=== PATIENT | male | born 1970 | race Two or more races ===

== ENCOUNTER 2017-08-11 15:37 | Emergency (ER) | payer SELFPAY | END 2017-08-11 16:06 | disposition left against medical advice (07) | LOC: ER 15:37 | DX: R07.9 Chest pain, unspecified (principal); Z53.21 Procedure and treatment not carried out due to patient leaving prior to being seen by health care provider ==

== ENCOUNTER 2017-08-12 14:46 | Emergency (ER) | payer SELFPAY ==
[~2017-08-12] VITALS: Ht 170.2 cm; Wt 72.6 kg
[2017-08-12 15:09] VITALS: BP 149/86
== END 2017-08-12 19:15 | disposition left against medical advice (07) ==
LOC: ER 14:46
DX: R07.89 Other chest pain (principal); Z53.21 Procedure and treatment not carried out due to patient leaving prior to being seen by health care provider; W19.XXXA Unspecified fall, initial encounter; Y93.89 Activity, other specified; Y99.8 Other external cause status; Y92.89 Other specified places as the place of occurrence of the external cause
CPT/HCPCS: 71046; 93005

== ENCOUNTER 2017-08-13 09:51 | Emergency (ER) | payer SELFPAY ==
[~2017-08-13] VITALS: Ht 170.2 cm; Wt 72.6 kg
[2017-08-13 09:59] VITALS: BP 134/84
[2017-08-13] MEDS ORDERED: KETOROLAC TROMETH 60MG/2ML VIAL IM ONE ×2 (12:15→12:17)
== END 2017-08-13 12:55 | disposition home or self-care (01) ==
LOC: ER 09:51
DX: S20.212A Contusion of left front wall of thorax, initial encounter (principal); W20.8XXA Other cause of strike by thrown, projected or falling object, initial encounter; Y93.89 Activity, other specified; Y92.89 Other specified places as the place of occurrence of the external cause; Y99.8 Other external cause status
CPT/HCPCS: 93005; 96372; 99283; J1885